=== PATIENT | male | born 1955 | race Two or more races ===

== ENCOUNTER 2019-03-25 07:46 | Emergency (ER) | payer BC, OTHER ==
[~2019-03-25] VITALS: Ht 165.1 cm; Wt 86.2 kg
[2019-03-25 08:30] VITALS: BP 172/114
[2019-03-25] MEDS ORDERED: METHOCARBAMOL 500 MG TAB PO ONE (08:45)
[2019-03-25] MEDS ORDERED: KETOROLAC TROMETH 60MG/2ML VIAL IM ONE (08:45)
[2019-03-25] MEDS ORDERED: cloNIDine HCL 0.1 MG TAB PO ONE (08:45)
== END 2019-03-25 09:28 | disposition home or self-care (01) ==
LOC: ER 07:46 → EDBD 07:46 → ER 09:28
DX: M54.5 Low back pain (principal); E11.9 Type 2 diabetes mellitus without complications; Z90.89 Acquired absence of other organs; Z85.46 Personal history of malignant neoplasm of prostate; V43.52XA Car driver injured in collision with other type car in traffic accident, initial encounter; Y93.89 Activity, other specified; Y99.8 Other external cause status; Y92.410 Unspecified street and highway as the place of occurrence of the external cause
CPT/HCPCS: 72100; 96372; 99283; J1885